=== PATIENT | female | born 2005 | race Caucasian/White ===

== ENCOUNTER 2023-06-16 09:32 | Emergency (ER) | payer BC ==
[~2023-06-16] VITALS: Ht 160 cm; Wt 61.4 kg
[2023-06-16 10:28] VITALS: BP 132/78; PULSE 101; TEMP 98.2
== END 2023-06-16 10:28 | disposition home or self-care (01) ==
LOC: COL.ER 09:32
DX: J02.0 Streptococcal pharyngitis (principal)
CPT/HCPCS: J0561; J1100